=== PATIENT | male | born 1965 | race Caucasian/White ===

== ENCOUNTER 2025-03-12 16:28 | Emergency (ER) | payer OTHER ==
[~2025-03-12] VITALS: Ht 185.4 cm; Wt 69.0 kg
[~2025-03-12 16:28] MED LIST: FLOMAX0.4 MG PO; NORCO 5-325 TA1 EACH PO; ZOFRAN ODT4 MG PO
[2025-03-12] MEDS ORDERED: HYDROmorphone HCL 1 MG/ML SYR IV ONE ×3 (16:45→20:45)
[2025-03-12 17:31] LABS: BASOPHILS 0.2 % (0.2-1.2); EOSINOPHILS 1.0 % (0.8-7.0); LYMPHOCYTES 12.4 % (21.8-53.1); MCH 30.4 PG (25.7-32.2); MCHC 34.4 g/dL (32.3-36.5); MCV 88.4 fL (79.0-92.2); MONOCYTES 6.6 % (5.3-12.2); NEUTROPHILS 78.0 % (34.0-67.9); RBC 4.21 M/uL (4.63-6.08)
[2025-03-12 17:48] LABS: ALCOHOL, MEDICAL <3 ng/dL (<3); ALT (SGPT) 28 U/L (14-59); AST (SGOT) 23 U/L (15-37); GLOMERULAR FILTRATION RATE,EST 85 mL/min (>60); PROTEIN, TOTAL 6.2 g/dL (6.4-8.2); UREA NITROGEN 28 mg/dL (7-18)
[2025-03-12 18:01] LABS: ABO O; RH POSITIVE
[2025-03-12 18:02] LABS: ANTIBODY SCREEN NEGATIVE
[2025-03-12] MEDS ORDERED: POTASSIUM CHLORIDE 10 MEQ/100 ML BAG IV SCH (19:30)
[2025-03-12 21:04] VITALS: BP 137/105
--- NOTE | 2025-03-14 07:39 | EKG ---
[facility] [address] [facility] [place], [place] [address] Signed Normal sinus rhythm Voltage criteria for left ventricular hypertrophy ST \T\ T wave abnormality, consider inferior ischemia Prolonged QT Abnormal ECG No previous ECGs available Confirmed by Sonia Nava DO ([id number]) on 03/14/2025 7:39:36 AM Electronically Signed By: SONIA NAVA DO 03/14/25 0739 PATIENT NAME: MADISON ROBERTS Electrocardiogram DATE OF : 61 PHYSICIAN: SONIA NAVA DO REPORT #: [id number] REPORT IS CONFIDENTIAL AND NOT TO BE RELEASED WITHOUT AUTHORIZATION
== END 2025-03-12 20:48 | disposition short-term general hospital (02) ==
LOC: ED 16:28
PROVIDERS: Emergency Medicine
DX: S32.472A Displaced fracture of medial wall of left acetabulum, initial encounter for closed fracture (principal); S32.425A Nondisplaced fracture of posterior wall of left acetabulum, initial encounter for closed fracture; S32.502A Unspecified fracture of left pubis, initial encounter for closed fracture; S32.602A Unspecified fracture of left ischium, initial encounter for closed fracture; S92.002A Unspecified fracture of left calcaneus, initial encounter for closed fracture; W17.89XA Other fall from one level to another, initial encounter; F17.200 Nicotine dependence, unspecified, uncomplicated
CPT/HCPCS: 36415; 70450; 71260; 72125; 73610; 73630; 73650; 74177; 80053; 80307; 83735; 84484; 85025; 86850; 86900; 86901; 93005; 93010; 96365; 96375; 96376; 99285-25; G0480; J1171; J2405; J3480; Q9967